=== PATIENT | female | born 1980 | race Caucasian/White ===

== ENCOUNTER 2022-07-24 06:10 | Emergency (ER) | payer SELFPAY ==
[~2022-07-24] VITALS: Ht 162.6 cm; Wt 103.0 kg
[2022-07-24] MEDS ORDERED: IBUPROFEN 600MG TABLET PO ONE (08:45)
[2022-07-24] MEDS ORDERED: KETOROLAC 60MG/2ML VIAL IM ONE (10:15)
[2022-07-24] MEDS ORDERED: TRAM50TA MT (10:20)
[2022-07-24] MEDS ORDERED: NORF MT (10:20)
[2022-07-24 10:42] VITALS: BP 107/68
== END 2022-07-24 11:00 | disposition home or self-care (01) ==
LOC: ER 06:27
DX: S80.02XA Contusion of left knee, initial encounter (principal); S80.01XA Contusion of right knee, initial encounter; M25.552 Pain in left hip; W01.0XXA Fall on same level from slipping, tripping and stumbling without subsequent striking against object, initial encounter; Y93.89 Activity, other specified; Y92.89 Other specified places as the place of occurrence of the external cause; Y99.8 Other external cause status
CPT/HCPCS: 72100; 73502; 73560; 96372; 99284; J1885